=== PATIENT | female | born 1995 | race Caucasian/White ===

== ENCOUNTER 2025-08-06 17:15 | Emergency (ER) | payer BC ==
[~2025-08-06] VITALS: Ht 175.2 cm; Wt 108.9 kg
[2025-08-06] MEDS ORDERED: Acetaminophen/Oxycodone 5 MG/325 MG TABLET PO ONE (17:40)
[2025-08-06] MEDS ORDERED: CYCLOBENZAPRINE10 MG PO (18:59)
== END 2025-08-06 18:54 | disposition home or self-care (01) ==
LOC: ED 17:15
DX: S39.012A Strain of muscle, fascia and tendon of lower back, initial encounter (principal); M47.816 Spondylosis without myelopathy or radiculopathy, lumbar region; X50.0XXA Overexertion from strenuous movement or load, initial encounter; Y93.E2 Activity, laundry; Y92.89 Other specified places as the place of occurrence of the external cause; Y99.8 Other external cause status